=== PATIENT | male | born 1990 | race Caucasian/White ===

== ENCOUNTER 2019-04-25 23:58 | Emergency (ER) | payer MEDICAID ==
[~2019-04-25] VITALS: Ht 162.6 cm; Wt 64.0 kg
[2019-04-26] MEDS ORDERED: ONDANSETRON HCL 4MG/2ML INJ IV STA (03:38)
[2019-04-26] MEDS ORDERED: SODIUM CHLORIDE 0.9% 1,000 ML IV ONE (03:38)
[2019-04-26] MEDS ORDERED: MORPHINE SULFATE 4 MG/ML CPJ (NOT FOR IM USE) IV STA (03:38)
[2019-04-26 03:56] LABS: CHLORIDE 106 mEq/L (98-107)
[2019-04-26 04:06] LABS: BASOPHILS % 0.5 % (0.0-2.0); EOSINOPHILS % 1.6 % (0.0-5.0); HEMATOCRIT. 41.6 % (42.0-52.0); HEMOGLOBIN. 14.4 g/dL (14.0-18.0); MEAN CORPUSCULAR HEMOGLOBIN 32.4 pg (28.0-32.0); MEAN CORPUSCULAR VOLUME 93.6 fL (80.0-94.0); MEAN PLATELET VOLUME 8.6 fl (7.4-10.4); MONOCYTES % 11.4 % (2.0-8.0); NEUTROPHILS % 53.5 % (40.0-76.0); PLATELET 208 x1000/uL (130-400); RED BLOOD CELL COUNT 4.44 mill/uL (4.7-6.1); RED CELL DISTRIBUTION WIDTH 13.9 % (11.6-14.6)
[2019-04-26] MEDS ORDERED: IOHEXOL-300 100 ML BOTTLE ONE (05:13)
[2019-04-26 06:29] VITALS: BP 108/55
== END 2019-04-26 06:33 | disposition home or self-care (01) ==
LOC: ER 23:58
DX: R10.0 Acute abdomen (principal); K92.1 Melena; F17.210 Nicotine dependence, cigarettes, uncomplicated; Z71.6 Tobacco abuse counseling
CPT/HCPCS: 36415; 74177; 80053; 83690; 85025; 86850; 86900; 86901; 96374; 96375; 99284; 99406; J2270; J2405; J7030; Q9967